=== PATIENT | female | born 1950 | race Caucasian/White ===

== ENCOUNTER 2020-02-21 02:52 | Outpatient (CLI) | payer OTHER, SELFPAY ==
[2020-02-21 19:47] LABS: SARS-CoV-2 RNA PCR Negative
== END 2020-02-21 02:53 | disposition home or self-care (01) ==
LOC: ANHCOVIDDT 02:52
PROVIDERS: PCP Internal Medicine; Visit Provider Internal Medicine Gastroenterology
DX: Z01.812 Encounter for preprocedural laboratory examination (principal); Z20.828 Contact with and (suspected) exposure to other viral communicable diseases
CPT/HCPCS: 87635; C9803; U0003

== ENCOUNTER 2020-02-24 04:29 | Day surgery (SDC) | payer MEDICARE, SELFPAY ==
[2020-02-20 10:05] VITALS: BMI 35.5
[2020-02-24 10:53] VITALS: BP 148/89; PULSE 69; RESP 18; TEMP 37.1; O2SAT 98
[2020-02-24] MEDS: LACTATED RINGERS 1,000 ML 150 ML IV CONT (10:59)
[2020-02-24 11:05] LABS: Glucose Point of Care 127 (65-105)
--- NOTE | 2020-02-24 11:10 | WPDANESEPPF ---
Anes - Initial Pre Proc Eval Procedure: Operation Date: 02/24/20 12:15 Proposed Procedures p Screening Colonoscopy - Mj Chaney MD Date/Time: 02/24/20 11:10 Surgeon: Mj Chaney MD Pre Op Diagnosis: Neoplasm Screening Patient Data Age: 69 Gender: F Height: 5 ft 3 in Weight: 91.2 kg Last Vital Signs Temp 37.1 C 02/24/20 10:53 Pulse 69 02/24/20 10:53 Resp 18 02/24/20 10:53 BP 148/89 H 02/24/20 10:53 Pulse Ox 98 02/24/20 10:53 Allergies Allergy/AdvReac Type Severity Reaction Status Date / Time No Known Allergies Allergy Verified 01/03/20 13:19 Home Medications Medication Instructions Recorded Confirmed Type levothyroxine 88 mcg tablet See Rx Instructions .ROUTE 09/29/19 02/20/20 Rx .COMPLEX #90 tablet lisinopril 20 mg tablet 20 mg PO DAILY #90 tablet 09/29/19 02/20/20 Rx metoprolol tartrate 100 mg tablet See Rx Instructions .ROUTE 09/29/19 02/20/20 Rx .COMPLEX #90 tablet lorazepam 1 mg tablet 1 mg PO TID PRN #90 tablet 10/03/19 02/20/20 Rx omega-3 fatty acids 1,000 mg 1,000 mg PO DAILY #90 cap 12/22/19 02/20/20 Rx capsule cholecalciferol (vitamin D3) 50 50 mcg PO DAILY #90 tablet 01/03/20 02/20/20 Rx mcg (2,000 unit) tablet ezetimibe 10 mg tablet 10 mg PO DAILY #90 tablet 01/03/20 02/20/20 Rx metformin 1,000 mg tablet 1,000 mg PO BID #180 tablet 01/03/20 02/20/20 Rx sitagliptin 100 mg tablet 100 mg PO DAILY #90 tablet 01/03/20 02/20/20 Rx Laboratory Tests 02/24/20 11:03 POC Capillary Glucose 127 mg/dl H mg/dl (65-105) Patient hx anesthesia problems: none Family hx anesthesia problems: none PMFSH Past Medical History Medical History Acquired hypothyroidism Benign essential hypertension History of frequent headaches Mixed hyperlipidemia Family History Family History Father Family history of lung cancer Mother Family history of chronic obstructive pulmonary disease Social History Social History Smoking status: Never smoker Alcohol intake: never Substance use: never Substance use type: does not use Living arrangements: with family Gender identity (if verbalized by the patient): Female Spiritual care concerns: No Anes - Eval Final PreProcedure Day of Procedure 02/24/20 11:10 Patient weight: obese Heart: regular rate and rhythm Lungs: clear to auscultation Airway: Mallampati scale class 1 Neurological: alert and oriented Last oral intake: >/= 8 hours ASA classification: III Emergent: no Anesthetic plan: proceed Anesthesia type and monitoring: general GIVS and standard monitoring Informed Consent: The patient's anesthetic plan and its attendant risks and benefits were discussed with the patient/family/POA. Questions were solicited and answers provided to the satisfaction of the patient/family/POA.
--- NOTE | 2020-02-24 11:43 | PM.HPGS ---
History of Present Illness History of Present Illness Consent: Risks, benefits, and alternatives have been discussed and questions answered. Patient agrees to proceed with procedure. Chief complaint: Neoplasm Screening Narrative: Rola Kenny is a 69 year old female here for first screening colonoscopy Review of Systems Constitutional: Constitutional: Denies headache(s) and Denies weakness Eyes: Eyes: Denies blurry vision ENT: Reports Normal hearing present, Denies headache(s) and Denies neck pain Cardiovascular: Cardiovascular: Denies chest pain and Denies dyspnea Respiratory: Respiratory: Denies dyspnea Gastrointestinal: Gastrointestinal: Reports no additional gastrointestinal complaints Genitourinary: Genitourinary: Denies dysuria Musculoskeletal: Musculoskeletal: Denies neck pain Integumentary/Breasts: Skin/Breast: Denies dry skin Neurologic: Reports Normal hearing present, Denies headache(s) and Denies weakness Psychiatric: Psychiatric: Denies anxiety Endocrine: Endocrine: Denies change in body appearance Hematologic/Lymphatic: Hematologic/Lymphatic: Denies easy bleeding Allergic/Immunologic: Allergic/Immunologic: Denies urticaria PMFSH Past Medical History Medical History Acquired hypothyroidism Benign essential hypertension History of frequent headaches Mixed hyperlipidemia Family History Family History Father Family history of lung cancer Mother Family history of chronic obstructive pulmonary disease Social History Social History Smoking status: Never smoker Alcohol intake: never Substance use: never Substance use type: does not use Living arrangements: with family Gender identity (if verbalized by the patient): Female Spiritual care concerns: No Meds Home Medications and Allergies Home Medications Medication Instructions Recorded Confirmed Type levothyroxine 88 mcg tablet See Rx Instructions .ROUTE 09/29/19 02/20/20 Rx .COMPLEX #90 tablet lisinopril 20 mg tablet 20 mg PO DAILY #90 tablet 09/29/19 02/20/20 Rx metoprolol tartrate 100 mg tablet See Rx Instructions .ROUTE 09/29/19 02/20/20 Rx .COMPLEX #90 tablet lorazepam 1 mg tablet 1 mg PO TID PRN #90 tablet 10/03/19 02/20/20 Rx omega-3 fatty acids 1,000 mg 1,000 mg PO DAILY #90 cap 12/22/19 02/20/20 Rx capsule cholecalciferol (vitamin D3) 50 50 mcg PO DAILY #90 tablet 01/03/20 02/20/20 Rx mcg (2,000 unit) tablet ezetimibe 10 mg tablet 10 mg PO DAILY #90 tablet 01/03/20 02/20/20 Rx metformin 1,000 mg tablet 1,000 mg PO BID #180 tablet 01/03/20 02/20/20 Rx sitagliptin 100 mg tablet 100 mg PO DAILY #90 tablet 01/03/20 02/20/20 Rx Allergies Allergy/AdvReac Type Severity Reaction Status Date / Time No Known Allergies Allergy Verified 01/03/20 13:19 Vital Signs Vital Signs - 24 hr 02/24/20 10:53 Temperature 98.8 F Pulse Rate 69 Respiratory Rate 18 Blood Pressure 148/89 H Pulse Oximetry 98 Exam Const: General: comfortable and no acute distress HENMT: General nose exam: Normal nares present Eyes: General: appearance normal, both eyes and all related structures Neck: Neck: no JVD Resp: Auscultation: clear to auscultation bilaterally Cardio: Rate: regular rate Rhythm: regular rhythm GI: Inspection: non-distended GI Palp: Yes Soft to palpation Skin: General skin exam: normal color Neuro: General: gait normal Speech: normal speech Extrem: General: normal to inspection Psych: Mental Status: mental status grossly normal Assessment and Plan Assessment and plan (1) Colon cancer screening: Code(s): Z12.11 - Encounter for screening for malignant neoplasm of colon Status: Acute Assessment and Plan: will proceed with colonoscopy
[2020-02-24 12:06] VITALS: BP 103/70; PULSE 64; RESP 20; O2SAT 99
[2020-02-24 12:16] VITALS: BP 115/71; PULSE 59; RESP 21; O2SAT 97
[2020-02-24 12:26] VITALS: BP 128/79; PULSE 63; RESP 18; O2SAT 100
== END 2020-02-24 12:31 | disposition home or self-care (01) ==
PROVIDERS: PCP Internal Medicine; Visit Provider Internal Medicine Gastroenterology
PROC: 0DJD8ZZ Inspection of Lower Intestinal Tract, Via Natural or Artificial Opening Endoscopic (ICD-10-PCS; CPT 45378; principal; 2020-02-24 12:15)
DX: Z12.11 Encounter for screening for malignant neoplasm of colon (principal); K57.30 Diverticulosis of large intestine without perforation or abscess without bleeding; E03.9 Hypothyroidism, unspecified; I10 Essential (primary) hypertension; E78.2 Mixed hyperlipidemia; E66.9 Obesity, unspecified; Z68.35 Body mass index [BMI] 35.0-35.9, adult
CPT/HCPCS: G0121; J2704; J7120

== ENCOUNTER 2021-10-23 14:43 | Outpatient (CLI) | payer MEDICARE, SELFPAY ==
--- NOTE | ~2021-10-23 | MM_ITS ---
EXAMINATION: MM screening lea BI w octaviano HISTORY: Screening TECHNIQUE: Craniocaudal and mediolateral oblique 3-D tomosynthesis images were obtained and synthetic 2-D images were generated. CAD analysis was submitted and interpreted. COMPARISON: No prior mammogram is available for comparison at this institution. BREAST PARENCHYMAL COMPOSITION: There are scattered areas of fibroglandular density. FINDINGS: There is no evidence of suspicious mass, calcification, or architectural distortion to sugg est malignancy in either breast. There has been no suspicious interval change. IMPRESSION: 1. No mammographic evidence of malignancy. 2. Recommend routine screening mammography in one year. BI-RADS Category 1: Negative Reviewed, dictated and finalized at location A.
== END 2021-10-23 14:44 | disposition home or self-care (01) ==
LOC: ANHIMG 14:45
PROVIDERS: PCP Internal Medicine; Visit Provider Internal Medicine
DX: Z12.31 Encounter for screening mammogram for malignant neoplasm of breast (principal)
CPT/HCPCS: 77063; 77067

== ENCOUNTER 2023-01-05 13:38 | Outpatient (CLI) | payer MEDICARE, SELFPAY ==
--- NOTE | ~2023-01-05 | MM_ITS ---
EXAMINATION: MM screening lea BI w octaviano HISTORY: Screening mammogram TECHNIQUE: Craniocaudal and mediolateral oblique 3-D tomosynthesis images were obtained and synthetic 2-D images were generated. CAD analysis was submitted and interpreted. COMPARISON: 10/23/2021 BREAST PARENCHYMAL COMPOSITION: There are scattered areas of fibroglandular density. FINDINGS: No suspicious mass, calcification, or architectural distortion are identified in either charlene ast to suggest malignancy. There has been no suspicious interval change. IMPRESSION: 1. No mammographic evidence of malignancy. 2. Recommend routine screening mammography in one year. BI-RADS Category 1: Negative Reviewed, dictated and finalized at location A.
== END 2023-01-05 13:39 | disposition home or self-care (01) ==
PROVIDERS: PCP Family Medicine; Visit Provider Family Medicine
DX: Z12.31 Encounter for screening mammogram for malignant neoplasm of breast (principal)
CPT/HCPCS: 77063; 77067

== ENCOUNTER 2023-05-11 15:02 | Outpatient (CLI) | payer MEDICARE, SELFPAY ==
--- NOTE | ~2023-05-11 | DEXA_ITS ---
Bone Density Report Name: MAXIMILIANO LUCIO Age: 73 Sex: Female Ethnicity: White Date of : 1950 Indication: postmenopausal; screening for osteoporosis; Referring Provider: JAIMEE ANGELO Study: Bone densitometry was performed. Exam Date: May 11, 2023 Accession number: [id number] Bone Density: Region BMD T-score Z-score Classification AP Spine(L1-L4) 1.283 2.1 4.3 Normal Femoral Neck (Left) 0.870 0.2 2.0 Normal Total Hip (Left) 1.253 2.6 4.1 Normal Femoral Neck (Right) 0.934 0.8 2.6 Normal Total Hip (Right) 1.117 1.4 3.0 Normal Total Hip Mean 1.185 2.0 3.6 Normal World Health Organization criteria for BMD impression classify patients as: Normal (T-score at or above -1.0), Osteopenia (T-score between -1.0 and -2.5), or Osteoporosis (T-score at or below -2.5). 10-year Fracture Risk: FRAX not reported because: All T-scores for Spine Total, Hip Total, Femoral Neck at or above -1.0 Clinical Information Provided by Patient: Has used the following medications: Vitamin D, levothyroxine Has the following medical conditions: hyperthyroidism Patient maximum height was 63.5 No regular weight bearing exercise Drinks caffeinated beverages Onset of menses at age 14 Number of children 1 Impression: The patient has normal bone mass. Discussion: BONE DENSITY IS ABOVE THE MINIMUM DESIRABLE LEVEL AT ALL SKELETAL SITES TESTED. This patient?s bone mineral density is above the minimum desirable level (T-score -1.0 or better) at all sites measured. The patient should follow a healthful lifestyle (good nutrition with adequate calcium and vitamin D, and appropriate weight-bearing exercise). Follow-Up: Consider repeating this study in 5 years or sooner if there is some new clinical indication. Reported by: ANSON on 05/11/2023 3:26:00 PM. Reviewed, dictated and finalized at location [facility]
== END 2023-05-11 15:03 | disposition home or self-care (01) ==
LOC: ANHIMG 15:04
PROVIDERS: PCP Family Medicine; Visit Provider Family Medicine
DX: E03.9 Hypothyroidism, unspecified (principal); E11.9 Type 2 diabetes mellitus without complications; E78.2 Mixed hyperlipidemia; I10 Essential (primary) hypertension; R79.89 Other specified abnormal findings of blood chemistry; Z78.0 Asymptomatic menopausal state
CPT/HCPCS: 77080

== ENCOUNTER 2024-07-18 15:05 | Outpatient (CLI) | payer MEDICARE, SELFPAY ==
--- NOTE | ~2024-07-18 | MM_ITS ---
EXAMINATION: MM screening lea BI w octaviano HISTORY: Screening TECHNIQUE: Craniocaudal and mediolateral oblique 3-D tomosynthesis images were obtained and synthetic 2-D images were generated. CAD analysis was submitted and interpreted. COMPARISON: Comparison to multiple prior studies sequentially, with oldest reviewed study dated 10/23. BREAST PARENCHYMAL COMPOSITION: Not dense: There are scattered areas of fibroglandular density. FINDINGS: There is no evidence of suspicious mass, calcification, or architectural distortion to sugg est malignancy in either breast. There has been no suspicious interval change. IMPRESSION: 1. No mammographic evidence of malignancy. 2. Recommend routine screening mammography in one year. BI-RADS Category 1: Negative Reviewed, dictated and finalized at location B.
== END 2024-07-18 15:06 | disposition home or self-care (01) ==
LOC: ANHIMG 15:07
PROVIDERS: PCP Family Medicine; Visit Provider Family Medicine
DX: Z12.31 Encounter for screening mammogram for malignant neoplasm of breast (principal)
CPT/HCPCS: 77063; 77067